=== PATIENT | male | born 1960 | race Caucasian/White ===

== ENCOUNTER 2018-05-16 16:29 | Inpatient (IN) ==
--- NOTE | 2018-05-16 18:16 | Emergency Department Note ---
Disposition Clinical Impression: Suicidal ideation Disposition: Admitted As Inpatient Condition: Fair Referrals: NONE,PCP [Primary Care Provider] - Time of Disposition: 18:27 Psych HPI - General Chief Complaint: ED Psychiatric Symptoms Stated Complaint: SI Time Seen by Provider: 05/16/18 16:39 Source: patient, EMS Mode of arrival: ambulatory Limitations: no limitations Nursing Notes Reviewed: Yes Vital Signs Reviewed: Yes - History of Present Illness HPI Narrative: 58 her old male history of TBI presents to the emergency department for suicidal ideations and psychiatric problems. Patient was seen at [facility] emergency department where they cleared him medically and transferred him here for 1a/psych evaluation. Patient states that he is having suicidal ideations where he wants to hang himself organ a bathtub and electrocute himself. Patient said that he has been depressed. He has a lot of stressors aureus take care of his sister and played child support and says he is just done. He has had these thoughts in the past which caused him to have the traumatic brain injury from an accident. Patient did not want to get into that with me. He used to be on psychiatry medications but when he changed insurances approximately 13 years ago he has not been on any since then. Patient does have history of cardiac problems as well as PAD because of all been stable. Patient otherwise has no complaints at this time. No fevers, chills, nausea, vomiting, headache, blurry vision, neck pain, back pain, chest pain, short of breath, abdominal pain, king es in bowel monitor, pain with urination, pain or tingling going down the arms or legs or generalized weakness. No homicidal ideation does have access to weapons only is having suicidal ideations. - Related Data Home Medications Medication Instructions Recorded Confirmed Isosorbide MONOnitrate (24 HR) 60 mg PO BID 11/17/14 05/16/18 [Imdur] Metoprolol [Lopressor] 100 mg PO BID 11/17/14 05/16/18 Nitroglycerin 0.4 mg SL PRN PRN 11/17/14 05/16/18 Famotidine [Pepcid] 40 mg PO BID 12/15/14 05/16/18 Aspirin [Adult Low Dose Aspirin EC] 81 mg PO DAILY 07/06/15 05/16/18 amLODIPine [Norvasc] 5 mg PO DAILY 09/06/15 05/16/18 metFORMIN [Glucophage] 1,000 mg PO BID 06/16/17 05/16/18 Atorvastatin [Lipitor] 40 mg PO HS 05/16/18 05/16/18 Previous Rx's Medication Instructions Recorded Clopidogrel Bisulfate [Plavix] 75 mg PO DAILY #30 tablet 09/06/15 Allergies Allergy/AdvReac Type Severity Reaction Status Date / Time venom-honey bee Allergy Swelling Verified 06/16/17 11:08 [bee venom (honey bee)] of Lip/Tongue/Throat Dopamine AdvReac Chest Pain Verified 06/16/17 11:08 All systems ED: reviewed and negative except as stated. Review of Systems: As Per HPI Past Medical History - Past Medical History Attestation: Yes The following information was validated with the patient. Source: patient Medical history: Reports: coronary artery disease, diabetes, GERD, hyperlipidemia, hypertension, migraine, TIA, other Surgical history: Reports: carotid endarterectomy Psychiatric history: Reports: bipolar, PTSD - Social History Smoking Status: Current every day smoker Smokeless Tobacco Status: No Alcohol use: Reports: none, recent Drug use: Reports: none Physical Exam - General Limitations: no limitations General appearance: alert, in no apparent distress - Head Head exam: atraumatic, normocephalic, normal inspection - Eye Eye exam: Present: normal appearance, PERRL, EOMI - ENT ENT exam: normal exam, normal oropharynx, mucous membranes moist - Neck Neck exam: Present: normal inspection, full ROM, trachea midline - Chest Chest inspection: Present: normal inspection, symmetric chest wall rise - Respiratory Respiratory exam: Present: normal lung sounds bilaterally - Cardiovascular Cardiovascular exam: Present: regular rate, normal rhythm, normal heart sounds - Abdominal Exam Abdominal exam: Present: soft, Non-Tender, normal bowel sounds. Absent: tenderness, distention, guarding, rebound, rigidity - Extremities Exam Extremities exam: Present: normal inspection, full ROM. Absent: tenderness, pedal edema - Back Exam Back exam: Present: normal inspection, full ROM. Absent: tenderness, CVA tenderness (R), CVA tenderness (L) - Neurological Exam Neurological exam: Present: alert, oriented X3 - Skin Skin exam: Present: warm, dry, intact, normal color Course Course Narrative: Patient has been cleared by Tesfaye cerrato all labs were arty done and urinalysis was normal tox screen was positive only for opiates. 1A has been called at this time. Vital Signs Temperature 98.3 F 05/16/18 16:45 Pulse Rate 71 05/16/18 16:45 Respiratory Rate 18 05/16/18 16:45 Blood Pressure 134/74 05/16/18 16:45 O2 Sat by Pulse Oximetry 98 05/16/18 16:45 Temperature 98.3 F 05/16/18 16:45 Pulse Rate 71 05/16/18 16:45 Respiratory Rate 18 05/16/18 16:45 Blood Pressure 134/74 05/16/18 16:45 O2 Sat by Pulse Oximetry 98 05/16/18 16:45 Oxygen Delivery Oxygen Delivery Room Air Psych - MDM Narrative Medical decision making narrative: 1 a came out to evaluate and said they will except to their service. The accepting physician is Dr. Fox. Patient is stable at this time and admitted to psychiatry unit. Was signed by myself and the attending Psychiatric Medical Clearance - Medical Clearance Checklist Medical History: No Social History Section defined Current Vitals: Last Vital Signs Temp 98.3 F 05/16/18 16:45 Pulse 71 05/16/18 16:45 Resp 18 05/16/18 16:45 BP 134/74 05/16/18 16:45 Pulse Ox 98 05/16/18 16:45 Statement of Medical Clearance: I have evaluated the patient, reviewed diagnostic information, and certify that the patient's medical condition is sufficiently stable that transfer to the psychiatric unit does not pose a significant risk of deterioration. Attestation Statement - Attestation Attestation: I, William Felton, examined this patient and my medical decision-making was reviewed with the MARKETING FINANCE SPECIALIST/PA/Advanced Practice Nurse/Resident Physician. I agree with the documented findings, disposition and treatment plan as described except to the extent set forth below. 58-year-old male presents emergency Department with concerns of suicidal ideation. Patient states he is having increased resident of life with his childcare payments and supporting his sisters health. Patient states he had thoughts about hanging himself. Patient states he does not have access to weapons other than knives at home. Patient states he had a previous suicide attempt in that he took multiple sleeping pills at home. Patient denies fever, chills, nausea, vomiting, diarrhea. Patient did not hit hurt himself prior to arrival. Patient was medically cleared and outside facility and sent for behavioral health evaluation. Behavioral health evaluated patient in the emergency department and will take him down to 1A for further evaluation.
[2018-05-16] MEDS ORDERED: Haloperidol Lactate 5 MG/ML VIAL IM PRN (19:14)
[2018-05-16] MEDS ORDERED: Mag Hydrox/Al Hydrox/Simeth 30 ML UDC PO PRN (19:14)
[2018-05-16] MEDS ORDERED: MOM Conc 10 ML UD.LIQ PO PRN (19:14)
[2018-05-16] MEDS ORDERED: Ibuprofen 400 MG TABLET PO PRN (19:14)
[2018-05-16] MEDS ORDERED: *HR* LORazepam 1 MG TABLET PO PRN (19:14)
[2018-05-16] MEDS ORDERED: *HR* LORazepam 2 MG/ML VIAL IM PRN (19:14)
[2018-05-16] MEDS ORDERED: Nitroglycerin 0.4 MG TAB.SUBL SL PRN (20:32)
[2018-05-16] MEDS ORDERED: *HR* Metformin 500 MG TABLET PO SCH (21:00)
[2018-05-16] MEDS: Famotidine 20 MG TABLET PO SCH (22:12)
[2018-05-16] MEDS: Isosorbide MONOnitrate (24 HR) 60 MG TAB.ER.24H PO SCH (22:13)
[2018-05-16] MEDS: hydrOXYzine pamoate 25 MG CAPSULE PO PRN (22:13)
[2018-05-16] MEDS: traZODone 50 MG TABLET PO PRN (22:13)
[2018-05-16] MEDS: Metoprolol 100 MG TABLET PO SCH (22:13)
[2018-05-17] MEDS: Nicotine 21 MG PATCH.TD24 TD SCH ×2 (02:00→08:35)
[2018-05-17] MEDS: amLODIPine 5 MG TABLET PO SCH (08:33)
[2018-05-17] MEDS: Isosorbide MONOnitrate (24 HR) 60 MG TAB.ER.24H PO SCH ×2 (08:33→20:25)
[2018-05-17] MEDS: Aspirin Enteric Coated 81 MG Tablet PO SCH (08:33)
[2018-05-17] MEDS: Metoprolol 100 MG TABLET PO SCH ×2 (08:34→20:24)
[2018-05-17] MEDS: Famotidine 20 MG TABLET PO SCH ×2 (08:34→20:24)
[2018-05-17] MEDS: *HR* Metformin 500 MG TABLET PO SCH ×2 (08:34→16:58)
--- NOTE | 2018-05-17 13:19 | Psychiatry History & Physical ---
Date of Encounter: 05/17/18 Time of Encounter: 12:41 History of Present Illness Patient Stated Chief Complaint: suicidal ideation Medicare Admission Attestation: For traditional Medicare patients the provided hospital inpatient services are reasonable and necessary and in the case of services not specified as inpatient-only under 42 CFR 419.22 (n), that they are appropriately provided as inpatient services in accordance 42 CFR 412.3. For Critical Access Hospital the patient may reasonably be expected to be discharged or transferred to a hospital within 96 hours after admission to the Critical Access Hospital. Admitted From: Home Plans for Post Hospital Care: Home History of Present Illness: Mr. Larson is a 58 year old male who was admitted secondary to suicidal ideation. Client has a long history of depression and was previously linked with [facility] for treatment. However, with Medicare/Medicaid changes client has not been able to afford mental health care and has had no treatment since 2005. Client reports a history of inpatient mental health hospitalizations but states the times he was hospitalized he was also drinking heavily and that alcohol played a big part in his hospitalizations. Client reports he could drink a gallon of liquor at his peak. However, he reports growing tired of it and quitting on his own ten years ago. Denies any withdrawals. Denies any other drug use outside of occasional pain pills. Has managed on his own since 2005 but many stressors have recently piled up and left him feeling suicidal. Client states his father and grandfather both at 56 years old, the age he is now. Client has many health problems and suspects he will not live much longer (s/p craniotomy for four skull fractures and a deep brain bleed, CAD, PAD, s/p carotidectomy, DM). Client has financial stressors and has been living alone [place] a property [place] acres. No real transportation and with his failing health he is fearful of being alone and so far away from everyone. Client also had an ex-girlfriend who thought she would make money raising pot bellied pigs. When the relationship ended client ended up with the pigs. Hasn't felt like he could move off his property due to fear they would no longer be cared for as he is attached to them. Client states he has taken multiple meds in the past but only remembers being on Elavil and Depakote. Thinks both of them were helpful. Would probably avoid Elavil at this point due to client's cardiac issues but Depakote is an option. Also discussed Cymbalta since client is presenting with clinical depression and Cymbalta might help with some of his chronic pain issues. Client expressed interest in trying it. Client also indicated he was in the for twenty one years with an honorable discharge and that he has been unable to get any benefits. Will have staff look into whether client is eligible for benefits and [facility]. Client also indicated his sister is contacting a pig rescue and that if they can take the pigs he might be able to live with her after discharge. Past Med Surg Social Fam HX - Past Medical History Medical history: coronary artery disease, diabetes, GERD, hyperlipidemia, hypertension, migraine, peripheral artery disease, TIA, other - Past Psychiatric History Psychiatric history: Reports: bipolar, depression, previous psychiatric hospitalization Family psychiatric history: No Family History of Suicide: None - Past Surgical History Surgical History: carotid endarterectomy - Social History Smoking Status: Current every day smoker Smokeless Tobacco Status: No Alcohol use: none Drug use: opiates Medications & Allergies Isosorbide MONOnitrate (24 HR) [Imdur] 60 mg PO BID 11/17/14 [History] Metoprolol [Lopressor] 100 mg PO BID 11/17/14 [History] Nitroglycerin 0.4 mg SL PRN PRN 11/17/14 [History] Famotidine [Pepcid] 40 mg PO BID 12/15/14 [History] Aspirin [Adult Low Dose Aspirin EC] 81 mg PO DAILY 07/06/15 [History] Clopidogrel Bisulfate [Plavix] 75 mg PO DAILY #30 tablet 09/06/15 [Rx] amLODIPine [Norvasc] 5 mg PO DAILY 09/06/15 [History] metFORMIN [Glucophage] 1,000 mg PO BID 06/16/17 [History] Atorvastatin [Lipitor] 80 mg PO HS 05/16/18 [History] Allergy/AdvReac Type Severity Reaction Status Date / Time venom-honey bee Allergy Swelling Verified 06/16/17 11:08 [bee venom (honey bee)] of Lip/Tongue/Throat Dopamine AdvReac Chest Pain Verified 06/16/17 11:08 Review of Systems Constitutional: Reports: weakness Eyes: Denies: eye pain, vision change Ears, Nose, Throat: Denies: ear pain, throat pain, dental pain, hearing loss, congestion Cardiovascular: Reports: other Respiratory: Denies: cough, dyspnea, wheezes Gastrointestinal: Denies: abdominal pain, nausea, vomiting, diarrhea, constipation Genitourinary male: Denies: urgency, dysuria, frequency, genital lesions Musculoskeletal: Reports: back pain Integumentary: Denies: rash, lesions, pruritus Neurological: Reports: other Endocrine: Denies: fatigue, heat or cold intolerance Hematologic/Lymphatic: Denies: easy bruising, lymphadenopathy Allergic/Immunologic: Denies: urticaria, itchy eyes Exam - HEENT Eye exam IM: Present: EOMI, normal appearance, PERRL ENT exam IM: Present: normal exam - Neurological Neurological exam: Present: CN II-XII intact - Respiratory Respiratory exam IM: Present: CTAB - GI/Abdominal GI/Abdominal exam IM: Present: normal bowel sounds, soft. Absent: tenderness - Extremities Extremities exam IM: Present: full ROM - Skin Skin exam IM: Present: dry, warm - Constitutional Vitals: Temp Pulse Resp BP Pulse Ox 97.6 F 60 16 134/85 97 05/17/18 09:00 05/17/18 09:00 05/17/18 09:00 05/17/18 09:00 05/17/18 09:00 General appearance: age & developmentally appropriate, well-groomed, well- nourished - Musculoskeletal Gait: other Station: relaxed Strength & Tone: normal for patient - Psychiatric Patient Orientation: Yes Person, Yes Time, Yes Place Level of alertness: Alert Behavior: calm, cooperative Psychomotor activity: Slowed Eye Contact: Maintains Eye Contact Mood Description: Depressed Affect description: congruent with mood Speech Volume: Normal Speech pattern: normal rate, normal rhythm, normal tone, fluent, spontaneous Language & Vocabulary: consistent with education Thought Process: Linear Thought Content: Yes Suicidal ideation, No Homicidal ideation, No Overt delusions Perceptual Disturbances: No Auditory hallucinations, No Visual hallucinations Attention Span Ability: Capable of Focused Attention Memory Description: Grossly Intact Patient Reliability: Reliable Historian Intelligence Estimate: Average Judgment: Fair Insight: Partial Results - Labs Labs: Laboratory Last Values POC Glucose 84 mg/dL (70-99) 05/17/18 07:58 Assessment and Plan (1) Major depression, recurrent Current visit: Yes Status: Acute Plan: Admit inpatient for safety and stabilization, Close observation, Suicide Precautions per unit protocol, Encourage participation in unit milieu, Group Therapy, Monitor sleep, Monitor appetite Risks, benefits, side effects, alternatives discussed w/pt: Yes Patient agreeable to treatment: Yes Plans for Post Hospital Care: Home Estimated Length of Stay (Days): 4 Qualifiers: Active/Remission status: currently active Major depression episode severity: severe Psychotic features: without psychotic features Qualified Code(s): F33.2 - Major depressive disorder, recurrent severe without psychotic features
[2018-05-17] MEDS: hydrOXYzine pamoate 25 MG CAPSULE PO PRN (20:23)
[2018-05-17] MEDS: traZODone 50 MG TABLET PO PRN (20:23)
[2018-05-18] MEDS: amLODIPine 5 MG TABLET PO SCH (08:48)
[2018-05-18] MEDS: Aspirin Enteric Coated 81 MG Tablet PO SCH (08:48)
[2018-05-18] MEDS: Famotidine 20 MG TABLET PO SCH (08:48)
[2018-05-18] MEDS: Metoprolol 100 MG TABLET PO SCH (08:48)
[2018-05-18] MEDS: *HR* Metformin 500 MG TABLET PO SCH (08:49)
[2018-05-18] MEDS: Isosorbide MONOnitrate (24 HR) 60 MG TAB.ER.24H PO SCH (08:49)
[2018-05-18] MEDS: Nicotine 21 MG PATCH.TD24 TD SCH (08:49)
[2018-05-18 08:53] VITALS: BP 120/77
--- NOTE | 2018-05-18 10:36 | Discharge Summary ---
Date of Encounter: 05/18/18 Time of Encounter: 10:33 Diagnosis - Discharge Diagnosis (1) Major depression, recurrent Status: Acute Qualifiers: Active/Remission status: currently active Major depression episode s everity: severe Psychotic features: without psychotic features Qualified Code(s): F33.2 - Major depressive disorder, recurrent severe without psychotic features Medications - Discharge Medications Prescriptions: DULoxetine [Cymbalta] 30 mg PO DAILY #30 capsule. Isosorbide MONOnitrate (24 HR) [Imdur] 60 mg PO BID 11/17/14 [History] Metoprolol [Lopressor] 100 mg PO BID 11/17/14 [History] Nitroglycerin 0.4 mg SL PRN PRN 11/17/14 [History] Famotidine [Pepcid] 40 mg PO BID 12/15/14 [History] Aspirin [Adult Low Dose Aspirin EC] 81 mg PO DAILY 07/06/15 [History] Clopidogrel Bisulfate [Plavix] 75 mg PO DAILY #30 tablet 09/06/15 [Rx] amLODIPine [Norvasc] 5 mg PO DAILY 09/06/15 [History] metFORMIN [Glucophage] 1,000 mg PO BID 06/16/17 [History] Atorvastatin [Lipitor] 80 mg PO HS 05/16/18 [History] DULoxetine [Cymbalta] 30 mg PO DAILY #30 capsule. 05/18/18 [Rx] Allergy/AdvReac Type Severity Reaction Status Date / Time venom-honey bee Allergy Swelling Verified 06/16/17 11:08 [bee venom (honey bee)] of Lip/Tongue/Throat Dopamine AdvReac Chest Pain Verified 06/16/17 11:08 Provider Date of admission: 05/16/18 18:28 Primary care physician: PCP NONE Discharging clinician: Alyson Gomez Psychiatry Exam - Constitutional Vitals: Temp Pulse Resp BP Pulse Ox 97.4 F L 63 16 120/77 97 05/18/18 08:52 05/18/18 08:52 05/18/18 08:52 05/18/18 08:52 05/18/18 08:52 General appearance: age & developmentally appropriate - Musculoskeletal Gait: normal Station: relaxed Strength & Tone: normal for patient - Psychiatric Patient Orientation: Yes Person, Yes Time, Yes Place Level of alertness: Alert Behavior: calm, cooperative Psychomotor activity: Normal Eye Contact: Maintains Eye Contact Mood Description: Euthymic/stable Affect description: congruent with mood, full range Speech Volume: Normal Speech pattern: normal rate, normal rhythm, normal tone, fluent, spontaneous Language & Vocabulary: consistent with education Thought Process: Linear, Goal Oriented Thought Content: No Suicidal ideation, No Homicidal ideation, No Overt delusions Perceptual Disturbances: No Auditory hallucinations, No Visual hallucinations Attention Span Ability: Capable of Focused Attention Memory Description: Grossly Intact Patient Reliability: Reliable Historian Fund of knowledge: Yes abstraction ability, Yes aware of current events Intelligence Estimate: Average Judgment: Fair Insight: Partial Hospital Course Hospital course: Mr. Larson is a 58 year old male who was admitted secondary to SI. He was started on Cymbalta with good clinical effect. Will need to have liver enzymes checked/followed as an outpatient. Client had multiple stressors that recently came to a head. However, his biggest stressors were able to be addressed while he was inpatient and he quickly improved once these stressors were addressed. 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 However, due to his declining physical health he was no longer feeling able to take care of them and he was nervous living alone in his home far removed from town without transportation. While inpatient a pig rescue was able to come and citrus picker his pigs. This freed client up to contact his sister and arrange to live with her. Client reported recent financial stressors but states these will be alleviated living with his sister and he will also now be less fearful since someone will be around him on a daily basis and he won't have to worry about being unable to get medical help for himself if he needs it. Today client states he is happy. Denies SI/HI/AH/VH. Believes a huge weight has been lifted and feels relief over the changes in was able to make while inpatient. Client is also in the process of [facility] as he is a former with an [facility] discharge. Has Medicare in the meantime but should be able to obtain additional benefits soon. Today client is bright, reactive, and future oriented. States he slept and ate well. Feels ready for discharge. Total time spent with client greater than 30 minutes. - Time Spent with Patient Total time spent providing and/or coordinating discharge services: Assessment and Plan - Patient/Caregiver Discharge Instructions Activity: resume usual activities as tolerated Diet: low fat, low cholesterol - Follow up Plan Follow up with: NONE,PCP [Primary Care Provider] - Functional capacity at discharge: independent ambulation Overall status at discharge: Stable Disposition: Home, Self-Care Quality - Multiple Antipsychotics Patient discharged on 2 or more antipsychotic medications: No Procedures - Procedures Procedures: Medication Management, Crisis Stabilization, Supportive Therapy, Group Therapy
== END 2018-05-18 12:07 | disposition home or self-care (01) | DRG 885 ==
LOC: EMEROOARM 16:29 → 1ANU 18:28
PROVIDERS: ADMIT Psychiatry & Neurology Psychiatry; ATTEND Psychiatry & Neurology Psychiatry